=== PATIENT | female | born 1985 | race Caucasian/White ===

== ENCOUNTER 2019-04-14 07:06 | Emergency (ER) | payer OTHER ==
[2019-04-14] MEDS ORDERED: oxyCODONE 5 MG TABLET PO STA ×2 (07:48→08:44)
--- NOTE | 2019-04-14 07:51 | ED Physician Documentation ---
PD HPI CHEST PAIN - Stated complaint Stated Complaint: UPPER RIGHT RIB PX - Chief complaint Chief Complaint: General - History obtained from History obtained from: Patient - History of Present Illness Timing - onset: Yesterday Timing - details: Still present Quality: Sharp, Pain Location: Right chest (posterior) Worsened by: Inspiration Similar symptoms before: No diagnosis - Additional information Additional information: The patient is a 34-year-old female who complains of right upper back pain that started yesterday while reaching for an object. She reports associated shortness of breath and describes it as "spasming." The pain is in the right posterior chest wall in the scapular region. She denies cough or fever. She reports a history of similar spasms occasionally in the past. She does not smoke cigarettes. Review of Systems Constitutional: denies: Fever, Fatigue Ears: denies: Tinnitus/ringing Nose: denies: Congestion Throat: denies: Sore throat Cardiac: reports: Chest pain / pressure. denies: Palpitations Respiratory: reports: Dyspnea. 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 PHYSICIAN: Other : None HEENT: None Psych: Anxiety Musculoskeletal: None Derm: Psoriasis Other Past Medical History: Insulin resistance, hypoglycemia, PCOS - Past Surgical History Past Surgical History: Yes General: Cholecystectomy /AEROSPACE MEDICINE PHYSICIAN: Endometrial ablation HEENT: Tonsil/Adenoidectomy - Present Medications Home Medications: Ambulatory Orders Medication Instructions Recorded Confirmed Naproxen [Naprosyn] 500 mg PO BID #30 tablet 04/14/19 Tramadol HCl 50 mg PO Q6HR PRN #14 tablet 04/14/19 - Allergies Allergies/Adverse Reactions: Allergies Allergy/AdvReac Type Severity Reaction Status Date / Time acetaminophen [From Vicodin] AdvReac Nausea Verified 04/14/19 07:25 hydrocodone [From Vicodin] AdvReac Nausea Verified 04/14/19 07:25 - Social History Does the pt smoke?: No Smoking Status: Never smoker Does the pt drink ETOH?: No Does the pt have substance abuse?: No - Immunizations Immunizations are current?: Yes - POLST Patient has POLST: No PD ED PE NORMAL - Vitals Vital signs reviewed: Yes (normal) - General General: Alert and oriented X 3, Well developed/nourished - HEENT HEENT: Atraumatic, Pharynx benign - Neck Neck: No bony TTP, No adenopathy, No JVD - Cardiac Cardiac: RRR, No murmur - Respiratory Respiratory: No respiratory distress, Clear bilaterally, Other (No chest wall tenderness to palpation.) - Abdomen Abdomen: Soft, Non tender - Back Back: No CVA TTP - Extremities Extremities: No edema, No calf tenderness / cord - Neuro Neuro: Alert and oriented X 3, No motor deficit, No sensory deficit Results - Vitals Vitals: Vital Signs - 24 hr 04/14/19 07:22 Temperature 36.5 C Heart Rate 66 Respiratory 24 Rate Blood Pressure 106/80 O2 Saturation 100 Oxygen O2 Source Room air - Labs Labs: Laboratory Tests 04/14/19 08:10 D-Dimer < 200.0 L - Rads (name of study) CXR Radiology: Prelim report reviewed, EMP read contemporaneously, See rad report (No acute abnormality of the chest demonstrated.) PD MEDICAL DECISION MAKING - ED course Complexity details: reviewed results, re-evaluated patient, considered differential, d/w patient ED course: The patient's presentation is most consistent with pleuritic chest pain. Her chest x-ray reveals no evidence of pneumo thorax, pneumomediastinum, or pneumonia. D-dimer is negative making pulmonary embolus extremely unlikely. Her presentation does not suggest cardiac etiology. Treatment in the emergency department included administration of oxycodone 5 mg orally. I discussed with her and her female galvanometer assembler the diagnosis, symptomatic treatment and outpatient follow-up, as well as potentially worrisome signs or symptoms that should prompt reevaluation in the emergency department. Departure - Departure Disposition: 01 Home, Self Care Clinical Impression: Pleuritic chest pain Condition: Stable Health Concerns: chest pain Plan of Treatment: Naprosyn; Tramadol. Care Goals: Relief of symptoms. Assessment: see above. Instructions: ED Chest Pain Pleurisy Follow-Up: Nae Reynoso MD [Physician No Access] - Prescriptions: Tramadol HCl 50 mg PO Q6HR PRN #14 tablet PRN Reason: Pain Naproxen [Naprosyn] 500 mg PO BID #30 tablet Comments: You can use Naprosyn as prescribed, or ibuprofen, up to 800 mg 3 times daily for anti-inflammatory effect. You can use tramadol as prescribed if needed for pain. Let pain be your guide to activity level. Follow-up with your primary physician within 1 to 2 weeks. Call to schedule an appointment. Return to the emergency department if you develop increasing pain or shortness of breath, or otherwise worsening symptoms.
--- NOTE | 2019-04-14 08:14 | XRAY Report ---
Reason: chest pain Procedure Date: 04/14/2019 Accession Number: [id number] / [id number] Procedure: XR - Chest 2 View X-Ray CPT Code: 19971 FULL RESULT: EXAM: CHEST RADIOGRAPHY EXAM DATE: 04/14/2019 08:01 AM. CLINICAL HISTORY: Chest pain. COMPARISON: None. TECHNIQUE: 2 views. FINDINGS: Lungs/Pleura: No definite focal opacities evident. No pleural effusion. No pneumothorax. Normal volumes. Mediastinum: Heart and mediastinal contours are unremarkable. Other: None. IMPRESSION: No acute abnormality of the chest demonstrated. RADIA
[2019-04-14 09:26] VITALS: BP 90/64
== END 2019-04-14 09:28 | disposition home or self-care (01) ==
LOC: ED 07:06
DX: R07.81 Pleurodynia (principal)
CPT/HCPCS: 36415; 71046; 85379; 99283; A9270

== ENCOUNTER 2020-01-31 12:18 | Outpatient (CLI) | payer OTHER ==
[2020-01-31 16:53] LABS: ALBUMIN 4.2 g/dL (3.2-5.5); ALBUMIN/GLOBULIN RATIO 1.6 (1.0-2.2); BILIRUBIN,TOTAL 0.7 mg/dL (0.2-1.0); CALCIUM 8.9 mg/dL (8.5-10.3); CREATININE 0.6 mg/dL (0.4-1.0); TOTAL PROTEIN 6.8 g/dL (6.7-8.2)
== END 2020-01-31 23:59 | disposition home or self-care (01) ==
LOC: LAB.WCP 12:18
PROVIDERS: ATTEND Nurse Practitioner Family
DX: B35.1 Tinea unguium (principal)
CPT/HCPCS: 36415; 80053

== ENCOUNTER 2020-02-27 13:27 | Outpatient (CLI) | payer OTHER ==
[2020-02-27 18:04] LABS: ALBUMIN 4.5 g/dL (3.2-5.5); BILIRUBIN,DIRECT 0.1 mg/dL (0.1-0.5); BILIRUBIN,TOTAL 0.7 mg/dL (0.2-1.0)
== END 2020-02-27 23:59 | disposition home or self-care (01) ==
LOC: LAB.WCP 13:27
PROVIDERS: ATTEND Nurse Practitioner Family
DX: B35.1 Tinea unguium (principal)
CPT/HCPCS: 36415; 80076

== ENCOUNTER 2020-06-19 05:07 | Emergency (ER) | payer OTHER ==
--- NOTE | 2020-06-19 05:34 | ED Physician Documentation ---
PD HPI ABD PAIN - Stated complaint Stated Complaint: RLQ PX - Chief complaint Chief Complaint: Abd Pain - History obtained from History obtained from: Patient - History of Present Illness Timing - onset: Enter time (01:00), Today Timing - duration: Hours Timing - details: Abrupt onset, Constant, Waxing and waning Quality: Pain Location: RLQ Improved by: Position Worsened by: Position, Palpation Associated symptoms: Nausea. No: Fever, Vomiting, Diarrhea, Constipation, Vaginal bleeding Similar symptoms before: Has not had sx before Recently seen: Not recently seen - Additional information Additional information: c/o sudden onset RLQ pain that woke her from sleep at 1 AM. she went to bed at 9 PM asymptomatic. denies h/o similar symptoms; has PCOS but never has had pain this severe or of similar quality. c/o nausea but no vomiting. pain has been waxing and waning, generally worsening, since onset. drove self to ED. describes uncomfortable pulling sensation with urination. Review of Systems Constitutional: reports: Reviewed and negative Cardiac: reports: Reviewed and negative Respiratory: reports: Reviewed and negative GI: reports: Abdominal Pain, Nausea. denies: Vomiting, Constipation, Diarrhea : reports: Dysuria. 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 : None HEENT: None Psych: Anxiety Musculoskeletal: None Derm: Psoriasis - Past Surgical History Past Surgical History: Yes General: Cholecystectomy /ANTIQUE JEWELRY REPAIRER: Endometrial ablation HEENT: Tonsil/Adenoidectomy - Present Medications Home Medications: Ambulatory Orders Medication Instructions Recorded Confirmed Naproxen [Naprosyn] 500 mg PO BID #30 tablet 04/14/19 Tramadol HCl 50 mg PO Q6HR PRN #14 tablet 04/14/19 Ondansetron Odt [Zofran] 4 mg TL Q6H PRN #10 tablet 06/19/20 traMADol [Ultram] 50 - 100 mg PO Q6H PRN #20 tablet 06/19/20 - Allergies Allergies/Adverse Reactions: Allergies Allergy/AdvReac Type Severity Reaction Status Date / Time acetaminophen [From Vicodin] AdvReac Nausea Verified 04/14/19 07:25 hydrocodone [From Vicodin] AdvReac Nausea Verified 04/14/19 07:25 - Social History Does the pt smoke?: No Smoking Status: Never smoker Does the pt drink ETOH?: No Does the pt have substance abuse?: No - Immunizations Immunizations are current?: Yes - POLST Patient has POLST: No PD ED PE NORMAL - Vitals Vital signs reviewed: Yes - General General: Alert and oriented X 3, No acute distress (NAD at rest, obvious painful discomfort with some movement and on exam), Well developed/nourished - Cardiac Cardiac: RRR, No murmur - Respiratory Respiratory: No respiratory distress, Clear bilaterally - Abdomen Abdomen: Normal bowel sounds, Soft, Non distended - Back Back: No CVA TTP - Derm Derm: Normal color, Warm and dry PD ED PE EXPANDED - Abdomen Abdomen: Tender to palpation, Guarding, RLQ, Other ((+) Rovsings sign) Results - Vitals Vitals: Vital Signs - 24 hr 06/19/20 06/19/20 06/19/20 05:12 07:47 08:07 Temperature 37.5 C Heart Rate 78 73 71 Respiratory 18 15 16 Rate Blood Pressure 112/61 86/50 L 102/71 O2 Saturation 97 97 98 Oxygen O2 Source Room air - Labs Labs: Laboratory Tests 06/19/20 06/19/20 06/19/20 05:30 05:55 05:55 WBC 7.4 RBC 3.95 L Hgb 12.8 Hct 36.6 L MCV 92.7 MCH 32.4 H MCHC 35.0 RDW 11.4 L Plt Count 228 MPV 9.4 Neut # (Auto) 5.5 Lymph # (Auto) 1.5 Canadian # (Auto) 0.3 Eos # (Auto) 0.1 Baso # (Auto) 0.0 Absolute Nucleated RBC 0.00 Nucleated RBC % 0.0 Sodium 136 Potassium 4.1 Chloride 106 Carbon Dioxide 24 Anion Gap 6.0 BUN 18 Creatinine 0.6 Estimated GFR (MDRD) 113 Glucose 108 H Calcium 8.8 Total Bilirubin 0.9 AST 12 ALT 13 Alkaline Phosphatase 55 Total Protein 6.4 L Albumin 4.1 Globulin 2.3 Albumin/Globulin Ratio 1.8 Lipase 34 Urine Color YELLOW Urine Clarity CLEAR Urine pH 6.0 Ur Specific Hayden 1.025 Urine Protein NEGATIVE Urine Glucose (UA) NEGATIVE Urine Ketones NEGATIVE Urine Occult Blood NEGATIVE Urine Nitrite NEGATIVE Urine Bilirubin NEGATIVE Urine Urobilinogen 0.2 (NORMAL) Ur Leukocyte Esterase NEGATIVE Ur Microscopic Review NOT INDICATED Urine Culture Comments NOT INDICATED - Rads (name of study) CT A/P Radiology: Prelim report reviewed, See rad report PD MEDICAL DECISION MAKING - ED course Complexity details: reviewed results, re-evaluated patient, considered differential, d/w patient ED course: corpus luteum (right) with small amount adjacent fluid on CT, no other findings to explain patients symptoms. she reports adequate relief with toradol and zofran. Departure - Departure Disposition: 01 Home, Self Care Clinical Impression: Abdominal pain Qualifiers: Abdominal location: right lower quadrant Qualified Code(s): R10.31 - Right lower quadrant pain Condition: Good Instructions: ED Abdominal Pain Unkn Cause Follow-Up: LEONIE DUKES, MSN, PURCHASING MANAGER/SALES [Primary Care Provider] - Prescriptions: traMADol [Ultram] 50 - 100 mg PO Q6H PRN #20 tablet PRN Reason: Pain Ondansetron Odt [Zofran] 4 mg TL Q6H PRN #10 tablet PRN Reason: Nausea / Vomiting Forms: Activity restrictions Discharge Date/Time: 06/19/20 08:58
[2020-06-19 05:38] LABS: BILIRUBIN,URINE NEGATIVE (NEGATIVE); GLUCOSE, URINE (UA) NEGATIVE (NEGATIVE); KETONES,URINE (UA) NEGATIVE (NEGATIVE); LEUKOCYTE ESTERASE, URINE NEGATIVE (NEGATIVE); NITRITE,URINE NEGATIVE (NEGATIVE); OCCULT BLOOD,URINE NEGATIVE (NEGATIVE); PROTEIN,URINE NEGATIVE (NEGATIVE); UROBILINOGEN,URINE 0.2 (NORMAL) E.U./dL (NORMAL)
[2020-06-19 05:39] LABS: CLARITY,URINE CLEAR (CLEAR)
[2020-06-19] MEDS ORDERED: KETOROLAC 30 MG/ML VIAL IVP STA (05:52)
[2020-06-19] MEDS ORDERED: ONDANSETRON 4 MG/2 ML VIAL IVP STA (05:52)
[2020-06-19 06:04] LABS: BASOPHILS % (AUTO) 0.3 %; EOSINOPHILS # (AUTO) 0.1 10^3/uL (0.0-0.7); EOSINOPHILS % (AUTO) 0.8 %; HGB - HEMOGLOBIN 12.8 g/dL (12.0-16.0); LYMPHOCYTES # (AUTO) 1.5 10^3/uL (1.5-3.5); LYMPHOCYTES % (AUTO) 20.4 %; MEAN CORPUSCULAR HEMOGLOBIN 32.4 pg (27.0-31.0); MEAN CORPUSCULAR VOLUME 92.7 fL (81.0-99.0); MEAN PLATELET VOLUME 9.4 fL (7.9-10.8); MONOCYTES # (AUTO) 0.3 10^3/uL (0.0-1.0); MONOCYTES % (AUTO) 4.2 %; NEUTROPHILS # (AUTO) 5.5 10^3/uL (1.5-6.6); NEUTROPHILS % (AUTO) 73.9 %; PLT - PLATELET COUNT 228 10^3/uL (130-450); RED BLOOD COUNT 3.95 10^6/uL (4.20-5.40); RED CELL DISTRIBUTION WIDTH 11.4 % (12.0-15.0); WHITE BLOOD COUNT 7.4 x10^3/uL (4.8-10.8)
[2020-06-19 06:17] LABS: ALBUMIN 4.1 g/dL (3.2-5.5); ALBUMIN/GLOBULIN RATIO 1.8 (1.0-2.2); BILIRUBIN,TOTAL 0.9 mg/dL (0.2-1.0); CALCIUM 8.8 mg/dL (8.5-10.3); CREATININE 0.6 mg/dL (0.4-1.0); TOTAL PROTEIN 6.4 g/dL (6.7-8.2)
[2020-06-19] MEDS ORDERED: IOVERSOL 320 100 ML VIAL IVP ONE ×2 (06:33→10:21)
[2020-06-19 08:08] VITALS: BP 102/71
--- NOTE | 2020-06-19 08:22 | CT Report ---
PROCEDURE: Abdomen/Pelvis W INDICATIONS: RLQ pain, tenderness CONTRAST: IV CONTRAST: Optiray 320 ml: 100 PO CONTRAST: *NO PO CONTRAST TECHNIQUE: After the administration of oral contrast, 5 mm thick sections acquired from the diaphragms to the sy mphysis. 5 mm thick coronal and sagittal reformats were acquired. For radiation dose reduction, the following was used: automated exposure control, adjustment of mA and/or kV according to patient siz e. COMPARISON: None. FINDINGS: Image quality: Excellent. ABDOMEN: Lung bases: Lung bases are clear. Heart size is normal. Hepatic steatosis. Spleen unremarkable.. Gallbladder surgically absent Biliary system is non dilate d. Pancreas enhances normally. No adrenal nodules. Kidneys demonstrate normal size and enhancement , without hydronephrosis. Peritoneum and bowel: Bowel loops demonstrate normal wall thickness and caliber. No free fluid or a ir. Normal appendix. Nodes and vessels: No retroperitoneal or mesenteric adenopathy by size criteria . Aorta and inferior vena cava are normal in size. Miscellaneous: No ventral hernias. PELVIS: Genitourinary: Bladder wall thickness is normal. A presumed right-sided corpus luteum with statistic ally physiologic pelvic free fluid. Miscellaneous: No inguinal hernias or adenopathy. Bones: No suspicious bony lesions. No vertebral body compression fractures. IMPRESSION: Normal appendix. No acute abnormality identified Status post cholecystectomy. Hepatic steatosis Findings are concordant with the preliminary study interpretation provided at the time of the study. Reviewed by: Arian Shah MD on 06/19/2020 8:21 AM PDT Approved by: Arian Shah MD on 06/19/2020 8:21 AM PDT Station ID: [id number]
== END 2020-06-19 08:58 | disposition home or self-care (01) ==
LOC: ED 05:07
DX: R10.31 Right lower quadrant pain (principal); N83.11 Corpus luteum cyst of right ovary
CPT/HCPCS: 36415; 74177; 80053; 81003; 83690; 85025; 96374; 99284; Q9967; 81001; 87086

== ENCOUNTER 2020-10-21 03:05 | Emergency (ER) | payer OTHER ==
[2020-10-21] MEDS ORDERED: ONDANSETRON 4 MG/2 ML VIAL IVP STA (03:20)
[2020-10-21] MEDS ORDERED: SODIUM CHLORIDE 0.9% 1,000 ML IV STA (03:20)
[2020-10-21] MEDS ORDERED: diazePAM INJ 5 MG/ML SYRINGE IVP STA (03:20)
--- NOTE | 2020-10-21 03:23 | ED Physician Documentation ---
History of Present Illness - Stated complaint Stated Complaint: DIZZINESS/VOMITING - Chief complaint Chief Complaint: Neuro - History obtained from History obtained from: Patient - Additonal information Additional information: Pt comes to the emergency department for chief complaint of dizziness that started tonight. Patient states that for the last week, she has felt as though she has had sinus congestion and has felt just slightly off balance or dizzy. However, patient states that she awoke tonight feeling as though she was spinning. She states any movement makes it worse. Opening her eyes and looking around also makes it worse. Patient denies any tinnitus. No facial pain, other than in her supraorbital notches. Patient states that she has not had any ear pain. No decrease in hearing. She has had episodes of vertigo previously when she has a "sinus infection" or upper respiratory illness. Patient denies any recent head injury. She has been nauseated and has vomited once since the severe episode of vertigo started. No other complaints at this time. Review of Systems Ten Systems: 10 systems reviewed and negative Constitutional: reports: Reviewed and negative Eyes: reports: Reviewed and negative Ears: reports: Reviewed and negative Nose: reports: Congestion Throat: reports: Reviewed and negative Cardiac: reports: Reviewed and negative Respiratory: reports: Reviewed and negative GI: reports: Reviewed and negative : reports: Reviewed and negative Skin: reports: Reviewed and negative Musculoskeletal: reports: Reviewed and negative Neurologic: reports: Other (vertigo) Psychiatric: reports: Reviewed and negative Endocrine: reports: Reviewed and negative Immunocompromised: reports: Reviewed and negative PD PAST MEDICAL HISTORY - Past Medical History Cardiovascular: None Respiratory: None Neuro: None Endocrine/Autoimmune: Other GI: None DIRECTOR OF INVESTIGATIONS: Other : None HEENT: None Psych: Anxiety Musculoskeletal: None Derm: Psoriasis - Past Surgical History Past Surgical History: Yes General: Cholecystectomy /DIRECTOR OF INVESTIGATIONS: Endometrial ablation HEENT: Tonsil/Adenoidectomy - Present Medications Home Medications: Ambulatory Orders Medication Instructions Recorded Confirmed Meclizine [Antivert] 25 mg PO Q6H PRN #16 tablet 10/21/20 Ondansetron Odt [Zofran Odt] 4 mg TL Q6H PRN #10 tablet 10/21/20 diazePAM [Valium] 5 - 10 mg PO TID PRN #15 tablet 10/21/20 predniSONE [Deltasone] 60 mg PO DAILY 5 Days #15 tablet 10/21/20 - Allergies Allergies/Adverse Reactions: Allergies Allergy/AdvReac Type Severity Reaction Status Date / Time acetaminophen [From Vicodin] AdvReac Nausea Verified 10/21/20 03:48 hydrocodone [From Vicodin] AdvReac Nausea Verified 10/21/20 03:48 - Social History Does the pt smoke?: No Smoking Status: Never smoker Does the pt drink ETOH?: No Does the pt have substance abuse?: No - Immunizations Immunizations are current?: Yes - POLST Patient has POLST: No PD ED PE NORMAL - Vitals Vital signs reviewed: Yes - General General: Alert and oriented X 3, Other (Patient is not in distress but appears uncomfortable, sitting up in bed with her eyes closed, holding very still.) - HEENT HEENT: Atraumatic, PERRL, EOMI, Ears normal, Moist mucous membranes, Other (No sinus tenderness.) - Neck Neck: Supple, no meningeal sign - Cardiac Cardiac: RRR, No murmur, Strong equal pulses - Respiratory Respiratory: No respiratory distress, Clear bilaterally - Abdomen Abdomen: Soft, Non tender, Non distended - Derm Derm: Normal color, Warm and dry, No rash - Extremities Extremities: No deformity, No edema, No calf tenderness / cord - Neuro Neuro: Alert and oriented X 3, dump grader 2-12 intact, No motor deficit, No sensory deficit, Normal speech - Psych Psych: Normal mood, Normal affect Results - Vitals Vitals: Vital Signs - 24 hr 10/21/20 10/21/20 10/21/20 03:15 03:58 04:21 Temperature 37.2 C Heart Rate 73 66 91 Respiratory 18 15 20 Rate Blood Pressure 115/78 102/72 104/70 O2 Saturation 98 99 97 Oxygen O2 Source Room air PD MEDICAL DECISION MAKING - ED course Complexity details: considered differential, d/w patient ED course: The patient was treated symptomatically with IV fluids, Zofran, and Valium initially. She was found to be feeling a little better, though she still had some dizziness and felt as though her nausea could come back. She was given a dose of meclizine which she did tolerate orally. I felt that given the recent upper respiratory symptoms and the movement related vertigo, that her symptoms were peripheral and not central. Additionally, the patient has experienced the same scenario before. I discussed with the patient that at this point, the symptoms will have to resolve on their own and will be self-limited. We will do symptomatic treatment at home with Zofran, meclizine, Valium, and prednisone as needed. The patient has been given information for follow-up with ENT. We have discussed the usual indications for return. Departure - Departure Disposition: Home, Self Care Clinical Impression: Peripheral vertigo Qualifiers: Laterality: unspecified laterality Qualified Code(s): H81.399 - Other peripheral vertigo, unspecified ear Condition: Stable Instructions: ED BPV Vertigo Follow-Up: AL ALMAZAN MD [Physician No Access] - Prescriptions: Meclizine [Antivert] 25 mg PO Q6H PRN #16 tablet PRN Reason: Dizziness predniSONE [Deltasone] 60 mg PO DAILY 5 Days #15 tablet diazePAM [Valium] 5 - 10 mg PO TID PRN #15 tablet PRN Reason: Spasms Ondansetron Odt [Zofran Odt] 4 mg TL Q6H PRN #10 tablet PRN Reason: Nausea / Vomiting Comments: There is no evidence today of a serious cause of your vertigo. This should resolve on its own in the next few days to few weeks. You may take the medication prescribed as needed for the dizziness and nausea. Please be sure to drink plenty of fluids. If you are not feeling better after the next week, please follow-up with your primary care physician. Forms: Activity restrictions
[2020-10-21] MEDS ORDERED: MECLIZINE 12.5 MG TABLET PO STA (04:12)
[2020-10-21 04:22] VITALS: BP 104/70
== END 2020-10-21 04:30 | disposition home or self-care (01) ==
LOC: ED 03:05
DX: H81.399 Other peripheral vertigo, unspecified ear (principal)
CPT/HCPCS: 96361; 96374; 96375; 99284; A9270